=== PATIENT | female | born 1995 | race Caucasian/White ===

== ENCOUNTER 2021-10-20 16:54 | Inpatient (IN) | payer OTHER ==
[~2021-10-20] VITALS: Ht 157.5 cm; Wt 104.3 kg
[2021-10-20 18:31] LABS: HEMOGLOBIN 11.8 gm/dl (12.3-15.3); RED BLOOD COUNT 3.95 M/UL (4.00-5.10); WHITE BLOOD COUNT 10.6 K/UL (4.5-11.0)
[2021-10-20] MEDS ORDERED: PRENATAL TABLE1 EAC1 PO (18:37)
[2021-10-20] MEDS ORDERED: PROAIR DIGIHAL90 MCG INH (18:38)
[2021-10-21] MEDS ORDERED: HYDROCODON-ACE1 EAC4 PO (08:48)
[2021-10-21] MEDS ORDERED: IBUPROFEN800 MG PO (08:48)
[2021-10-21] MEDS ORDERED: COLACE 100MG C100 MG PO (08:48)
[2021-10-22 02:00] LABS: HEMOGLOBIN 10.2 gm/dl (12.3-15.3)
== END 2021-10-22 18:49 | disposition home or self-care (01) | DRG 807 ==
LOC: GENOP 16:54 → OB 17:33
PROVIDERS: Obstetrics & Gynecology; ADMIT Obstetrics & Gynecology
PROC: 10E0XZZ Delivery of Products of Conception, External Approach (ICD-10-PCS; principal; 2021-10-21)
PROC: 0KQM0ZZ Repair Perineum Muscle, Open Approach (ICD-10-PCS; 2021-10-21)
PROC: 4A1HXCZ Monitoring of Products of Conception, Cardiac Rate, External Approach (ICD-10-PCS; 2021-10-21)
PROC: 3E0234Z Introduction of Serum, Toxoid and Vaccine into Muscle, Percutaneous Approach (ICD-10-PCS; 2021-10-21)
DX: O99.214 Obesity complicating childbirth (principal); Z37.0 Single live birth; Z3A.40 40 weeks gestation of pregnancy; F41.9 Anxiety disorder, unspecified; Z20.822 Contact with and (suspected) exposure to COVID-19; O70.1 Second degree perineal laceration during delivery; O99.344 Other mental disorders complicating childbirth; Z98.890 Other specified postprocedural states; Z91.010 Allergy to peanuts; E66.01 Morbid (severe) obesity due to excess calories; Z91.040 Latex allergy status; Z90.49 Acquired absence of other specified parts of digestive tract; Z82.49 Family history of ischemic heart disease and other diseases of the circulatory system; Z83.3 Family history of diabetes mellitus; Z23 Encounter for immunization; Z28.311 Partially vaccinated for COVID-19
CPT/HCPCS: 81001; 82800; 83518; 85014; 85018; 85025; 90471; 90715; J2590; U0002